=== PATIENT | male | born 1995 | race Caucasian/White ===

== ENCOUNTER 2019-05-30 16:46 | Inpatient (IN) ==
--- NOTE | 2019-05-30 17:10 | PROVIDER DOCUMENTATION ---
HPI-General Adult - General Chief Complaint: GI Bleed Stated Complaint: PASSING BLOOD Time Seen by Provider: 05/30/19 16:55 Source: patient, family Allergies/Adverse Reactions: Patient Allergies Allergy/AdvReac Type Severity Reaction Status Date / Time No Known Allergies Allergy Verified 05/30/19 18:34 Home Medications: Home Medication List Medication Instructions Recorded Confirmed Last Taken Type NK [No Home Medications] 05/30/19 05/30/19 Unknown History - History of Present Illness -Gen Adult Nature of Presenting Problems: This is a 24yo male who presents with CC of bloody diarrhea, nausea, vomiting and weakness for 2-3 days. The patient has PMH of meth use. He does report bright red blood in his stool that he has noted today. He denies any bloody vomit. He denies hx of bloody stool. He does report elevated temp at approximately 100 degrees yesterday. The patient was recently treated at another ER and reports he was told it was his nerves. He was given a Rx by them but has not filled it. Review of Systems - Adult - REVIEW OF SYSTEMS - ADULT Constitutional: reports: fever Eyes: reports: no symptoms reported Ears, Nose, Mouth & Throat: reports: no symptoms reported Cardiovascular: reports: no symptoms reported. denies: chest pain Respiratory: reports: no symptoms reported. denies: shortness of breath Gastrointestinal: reports: abdominal pain, nausea, vomiting Genitourinary: reports: other (dark urine) Musculoskeletal: reports: no symptoms reported Integumentary: reports: rash Neurological: reports: no symptoms reported Psychiatric: reports: anxiety, alcohol/drug dependence Endocrine: reports: no symptoms reported Hematologic/Lymphatic: reports: no symptoms reported Allergic/Immunologic: reports: no symptoms reported Past History - Adult - PAST MEDICAL HISTORY-ADULT Review of Records: reports: Old Records Reviewed (no previous records noted) Major Childhood Illnesses: reports: denies history Cardiovascular: reports: denies history Respiratory: reports: denies history Gastrointestinal: reports: denies history. denies: hepatitis Genitourinary: reports: denies history Musculoskeletal: reports: denies history Neurological: reports: denies history Psychiatric: reports: denies history Endocrine/Immune: reports: denies history - SOCIAL HISTORY Smoking: other (smoker quite 6-7 weeks ago) Substance Use: amphetamines Alcohol Use Frequency: sober (former use) (8 months) Physical Exam-General - PHYSICAL EXAM-ADULT Initial Vital Signs Reviewed: Yes - CONSTITUTIONAL General Appearance: alert, no apparent distress - EYES Eyes: scleral icterus. negative: conjuctival exudate - HEAD, EARS, NOSE, MOUTH & THROAT HENMT: normocephalic/atraumatic, moist mucous membranes, pharynx normal - NECK Neck: normal inspection - RESPIRATORY Respiratory: lungs clear, normal breath sounds. negative: stridor, wheezing - CARDIOVASCULAR Cardiovascular: regular rate, rhythm, no edema - GASTROINTESTINAL (ABDOMEN) Abdominal Exam: non tender, soft - MUSCULOSKELETAL Extremity: non-tender (LE) - SKIN Integumentary: warm/dry, rash (several sites of erythema noted on the upper extremities.) - NEUROLOGIC Neurologic: grossly normal - PSYCHIATRIC Psych/Mental Status: normal mood/affect, normal thought content, normal thought process Progress - PLAN OF CARE/RESULTS Progress/Plan/Lab Results: Vital Signs - 8 hr 05/30/19 16:48 Temperature 98.0 F Pulse Rate 94 H Respiratory Rate 16 Blood Pressure 132/90 O2 Sat by Pulse Oximetry 100 Orders Category Date Time Status CBC WITH DIFF [HEME] Stat Lab 05/30/19 16:56 Uncollected COMPREHENSIVE METABOLIC PANEL [CHEM] Stat Lab 05/30/19 16:56 Uncollected LACTATE, PLASMA [CHEM] Stat Lab 05/30/19 16:56 Uncollected Result Diagrams: 05/30/19 18:35 05/30/19 17:36 - REASSESSMENT Reassessment #1 Status: other (Dicussed with GI team, Dr. Macdonald who recomended admission to hospitalist service, and he will see patient in the morning.) Reassessment #2 Status: other (Discussed case with the hospitalist team who have accepted the patient.) Departure - Departure Date of Disposition Decision: 05/30/19 Time of Disposition Decision: 21:00 DIAGNOSIS: Hepatitis, Nausea Vomiting Qualifiers: Vomiting type: unspecified Vomiting Intractability: non-intractable Nausea presence: with nausea Qualified Code(s): R11.2 - Nausea with vomiting, unspecified Disposition: ADMITTED INPATIENT 09 Certified Medical Emergency: Emergent Condition: Good Referrals and Follow-Ups: None,PCP [Primary Care Provider] - - Critical Care Note This patient required my direct & personal management of CC.: No Attestation - Physician/ JOSE Attestation Patient care was provided by Advanced Practice Provider:: No The physician spent face to face time with patient:: Yes Advanced Practice Provider documentation review:: Supervising physician onsite and consulted in the evaluation and care of this patient. The physician did have a face to face encounter with the patient.
[2019-05-30 18:18] LABS: URINE SOURCE CLEAN CATCH
[2019-05-30 18:21] LABS: BILIRUBIN URINE MODERATE (NEGATIVE); BLOOD URINE NEGATIVE (NEGATIVE); COLOR YELLOW; GLUCOSE URINE >1000 mg/dL (NEGATIVE); KETONE URINE NEGATIVE (NEGATIVE); LEUKOCYTES URINE NEGATIVE (NEGATIVE); NITRITE URINE NEGATIVE (NEGATIVE); PROTEIN URINE TRACE mg/dL (NEGATIVE); SP GRAVITY URINE 1.016; TURBIDITY URINE CLEAR (CLEAR); UROBILINOGEN URINE NORMAL (NORMAL)
[2019-05-30 18:33] LABS: UR EPITHELIAL CELLS <10 /HPF (<10); URINE BACTERIA NEGATIVE /HPF; URINE RBC <10 /HPF (<10); URINE WBC <10 /HPF (<10)
[2019-05-30 18:43] LABS: AGAP 14; ALB/GLOB RATIO 1.1; ALBUMIN 3.4 g/dL (3.5-5.0); ALKALINE PHOSPHATASE 205 U/L (32-122); BUN 7 mg/dL (8-22); CALCIUM 8.6 mg/dL (8.8-10.2); CHLORIDE 94 mmol/L (98-107); COSMO 274; CREATININE 0.7 mg/dL (0.7-1.2); ESTIMATED GFR > 60; GLUCOSE 201 mg/dL (70-104); POTASSIUM 3.9 mmol/L (3.5-5.1); SODIUM 135 mmol/L (136-145); TCO2 27 mmol/L (25-35); TOTAL BILIRUBIN 4.51 mg/dL (0.20-1.00); TOTAL PROTEIN 6.5 g/dL (6.3-8.3)
[2019-05-30 18:45] LABS: URINE CASTS NONE SEEN; URINE CRYSTALS CA OXALATE PRESENT; URINE YEAST NONE SEEN
[2019-05-30 18:46] LABS: BASO# 0.06 X1000 (0.0-0.2); BASO% 1.4 % (0.0-0.8); EOS# 0.02 X1000 (0.0-0.7); EOS% 0.5 % (0.0-10.0); HEMATOCRIT 45.4 % (42.0-52.0); IMM GRAN# 0.02 X1000 (0.0-0.04); IMM GRAN% 0.5 % (0.0-0.5); LYMPH# 1.61 X1000 (1.2-3.4); LYMPH% 37.6 % (20.5-51.1); MCH 28.8 PG (27-31); MCV 87.1 FL (81-99); MONO# 0.46 X1000 (0.11-0.59); MONO% 10.7 % (1.7-9.3); MPV 11.1 FL (7.4-10.4); NEUT# 2.11 X1000 (1.4-6.5); NEUT% 49.3 % (42.2-75.2); PLT 145 X1000 (130-400); RBC 5.21 XMIL (4.7-6.1); RDW 14.7 % (11.5-14.5); WBC 4.28 X1000 (4.8-10.8)
[2019-05-30 19:05] LABS: GOT 872 U/L (10-34); GPT 1673 U/L (10-44)
[2019-05-30] MEDS ORDERED: ZOFRAN IV ONE (19:43)
[2019-05-30 19:54] LABS: ACETAMINOPHEN 4.4 ug/mL (10-30); SALICYLATES < 3.00 mg/dL (3-10)
[2019-05-30 21:36] LABS: UR AMPHETAMINES QUAL PRESUMPTIVE POSITIVE (NONE DETECT); UR BARBITUATES QUAL NONE DETECTED (NONE DETECT); UR BENZODIAZEPIN QUAL NONE DETECTED (NONE DETECT); UR CANNABINOIDS QUAL NONE DETECTED (NONE DETECT); UR COCAINE QUAL NONE DETECTED (NONE DETECT); UR METHADONE QUAL NONE DETECTED (NONE DETECT); UR OPIATES QUAL NONE DETECTED (NONE DETECT); UR OXYCODONE QUAL NONE DETECTED (NONE DETECT); UR PCP QUAL NONE DETECTED (NONE DETECT)
[2019-05-30] MEDS ORDERED: SODIUM CHLORIDE 0.9% INJ ONE (21:57)
[2019-05-30] MEDS ORDERED: PHENERGAN IV ONE (21:57)
[2019-05-30 22:02] LABS: INR 1.06; PROTIME 13.9 Seconds (11.0-16.0)
[2019-05-30 22:03] LABS: PTT 40.3 Seconds (22.3-41.8)
--- NOTE | 2019-05-30 22:18 | EKG Report ---
Test Performed on : 05/30/2019 10:12:43 PM Test Reason : N/V/D, weakness Blood Pressure : / mmHG Vent. Rate : 062 BPM Atrial Rate : 062 BPM P-R Int : 142 ms QRS Dur : 096 ms QT Int : 414 ms P-R-T Axes : 069 063 070 degrees QTc Int : 420 ms Normal sinus rhythm. Normal ECG No previous ECGs available Unconfirmed Result
[2019-05-30 22:27] LABS: HEMOGLOBIN A1C 5.5 % (4.8-6.0)
[2019-05-31 01:00] LABS: AMYLASE 38 U/L (20-200); LIPASE 30 U/L (13-60)
[2019-05-31] MEDS: PROTONIX IV SCH (01:02)
[2019-05-31] MEDS: SODIUM CHLORIDE 0.9% INJ SCH (01:03)
[2019-05-31] MEDS ORDERED: TYLENOL PO PRN (01:26)
[2019-05-31] MEDS ORDERED: ZOFRAN IV PRN (01:26)
[2019-05-31] MEDS ORDERED: SODIUM CHLORIDE 0.9% INJ PRN (01:26)
[2019-05-31] MEDS ORDERED: NS 1,000 ML IV SCH (01:30)
[2019-05-31] MEDS ORDERED: PHENERGAN IV PRN (02:00)
--- NOTE | 2019-05-31 04:36 | HISTORY AND PHYSICAL ---
PRIMARY CARE PROVIDER: Patient does not have a primary care provider. CHIEF COMPLAINT: Rectal bleeding. HISTORY OF PRESENT ILLNESS: Mr. Veronica is a 24-year-old male with no known past medical history except for he does have a history of previous alcohol and nicotine abuse though currently only is abusing IV methamphetamines. The patient states that for approximately a week now that he has been having hematochezia. He has been having bright red blood in the toilet when he has bowel movements. The patient reports that he has had hemorrhoids in the past when he played football though this is different. It is not just a small amount mixed in his stool or on toilet paper. This is a large amount that covers the toilet paper and makes the entire toilet turn red though he denies any diarrhea or loose stools. He states he is having regular bowel movements with soft, brown, formed stools. He is reporting now for the past 2 to 3 days nausea, vomiting, and some weakness though he denies any hematemesis or coffee-ground appearance to his emesis. He denies any abdominal pain other than he did have a few episodes of abdominal cramping when he was having bowel movements. He also reports a subjective fever of 100 degrees yesterday. He denies any recent travel. He denies being around anyone with similar symptoms or anyone who was sick. He also denies any headache, dizziness, or feeling lightheaded. He denies any chest pain, shortness of breath or cough. He denies any dysuria or urinary frequency. He denies any pain, numbness, tingling or swelling in extremities. The patient states that he does not feel good and feels weak all over. He did not report any weakness on one side of his body that is worse than the other. The patient states that he was in the ER a few days ago at another hospital and was treated for anxiety. The patient states that he has recently been having some family issues and had lost a place to stay and had lost contact with his family and had been having increased stress and anxiety related to this though other than this he does not report any other recent illnesses. He denies any previous history of gastrointestinal bleeding or issues. He also denies any [id number] use of NSAIDs. He denies any current alcohol use as well though did report that for approximately 6 years he did drink daily and drank 6 beers per day. The patient denies any previous history of any liver complications as well. Upon evaluation in the ER, he was noted to have transaminitis with a total bilirubin of 4.51, AST 872, ALT 1673, and alkaline phosphatase of 205. He also had elevated lactate at 3. Urinalysis did not show any signs of infection though was positive for glucose, trace protein and moderate bilirubin. Urine drug screen was positive for amphetamines. The patient's salicylate level was less than 3 though his acetaminophen level was 4.4. We did repeat this in 4 hours and it had decreased to 3.3. Upon further questioning the patient about this, he denied any recent Tylenol use though stated a few days ago he did state he did take some Tylenol. He denied taking any other medications that may have Tylenol as a combination medication as well. Given his transaminitis, nausea, vomiting and reported fever, we did go ahead and perform a CT abdomen and pelvis with IV contrast which did show a very mild gallbladder wall thickening versus pericholecystic fluid. Radiologist did note to consider a right upper quadrant ultrasound for further evaluation. There were no gallstones identified. There were no focal liver lesions identified either and there was no biliary duct dilation. At this time, the patient will be admitted to medical floor for further treatment and evaluation. REVIEW OF SYSTEMS: A 14 point review of systems was conducted with the patient and all were negative except for pertinent positives mentioned above in HPI. PAST MEDICAL HISTORY: The patient denies any previous past medical history. PAST SURGICAL HISTORY: The patient denies any previous past surgical history. SOCIAL HISTORY: The patient is a former smoker. He did smoke 1 pack per day for approximately 6 years though quit smoking 6 months ago. The patient also reports that he used to be a daily drinker. He reports for 6 years he drank 6 beers daily though states he has not drank any alcohol in quite some time. He does report a history of illicit drug use and states that he does use IV amphetamines. He does inject IV methamphetamines though he denies any other illicit drug use besides this. The patient did report that he had recently lost his place to live and from what I understand contact with his family and has been under a lot of stress and has had increased anxiety. FAMILY MEDICAL HISTORY: The patient denies any past family medical history in his mother, father, brother or sister. He states they are all in good health. ALLERGIES: Patient has allergies to penicillin though he reports an unknown allergy. He states that he has been told since he was a baby that he has been allergic to penicillin. HOME MEDICATIONS: The patient denies any prescription medication use. DIAGNOSTIC DATA: White blood cell count is 4280, hemoglobin 15, hematocrit 45.4, platelet count is 145,000. PT 13.9, INR 1.06, PTT is 40.3. Sodium 135, potassium 3.9, chloride 94, serum bicarbonate is 27, BUN 7, creatinine 0.7, GFR is greater than 60, glucose 201. Hemoglobin A1c is 5.5. Calcium 8.6, magnesium 1.8, total bilirubin is 4.51, AST 872, ALT 1674, alkaline phosphatase is 205. Ammonia is 51. Amylase 38, lipase 30. Plasma lactate is 3. Salicylate level is less than 3. Acetaminophen level is 4.4 with a repeat 4 hours later of 3.3. Urine drug screen was positive for amphetamines. Urinalysis was positive for trace protein, glucose, moderate bilirubin though was negative for ketones, blood, nitrites, leukocytes, white blood cells, or bacteria. EKG showed normal sinus rhythm at a rate of 62 with a QTc of 420. CT abdomen and pelvis with IV contrast only showed very mild gallbladder wall thickening versus pericholecystic fluid. Radiologist noted to consider right upper quadrant ultrasound for further evaluation. There were no calcified gallstones identified. There was no biliary duct dilation. Also noted that there were no focal liver lesions, but it was noted that there was mild portacaval and periportal adenopathy. Please see radiologist's report for full detailed findings. PHYSICAL EXAMINATION: VITAL SIGNS: Temperature is 98 degrees, heart rate 66, respirations 18, blood pressure is 134/85, oxygen saturation is 100% on room air. GENERAL: Mr. Veronica is a 24-year-old male. He was resting in the ER stretcher. He was in no acute distress. He was awake, alert, and able to answer questions appropriately. HEENT: Head is atraumatic, normocephalic. Pupils are equal, round, reactive to light, were 3 mm bilaterally and brisk. Mild jaundice was noted to bilateral sclerae. Oral mucosa was moist. Oropharynx is clear. NECK: Supple. Trachea midline. CARDIOVASCULAR: Patient has S1-S2 present. No murmurs, gallops, rubs appreciated with a regular rate and rhythm. PULMONARY: Patient has symmetrical chest expansion bilaterally. Lung sounds are clear to auscultation in bilateral full valentin. ABDOMEN: Soft, nontender, nondistended. Bowel sounds are present in all 4 quadrants, were slightly hyperactive. EXTREMITIES: No cyanosis or edema noted. Pulse, motor, and sensory were intact in all extremities. Radial and pedal pulses were 2+ bilaterally. INTEGUMENTARY: The patient's skin is pink, warm, and dry. NEUROLOGICAL: Patient is alert and oriented to person, place, time, and situation. He is able to move all extremities. There were no focal neurological deficits noted. ASSESSMENT AND PLAN: 1. Transaminitis. For further evaluation of this, we have ordered a hepatitis profile. We will repeat a CMP in the morning. We have placed orders for an abdominal ultrasound. We also will continue to rule out possible gallbladder disease as well given that there were reports of some mild gallbladder wall thickening versus pericholecystic fluid on the patient's CT abdomen and pelvis. We have also placed a consult with Dr. Denton with Gastroenterology. We will await his evaluation and further recommendations for management. 2. Nausea, vomiting. Though the patient has not vomited since yesterday, he still is nauseated. He did attempt to eat while in the ER though did become immediately nauseated after he ate. We will implement some gentle intravenous fluids of normal saline. We will implement antiemetics of Zofran and Phenergan to be alternated as needed. He is NPO at this time for abdominal ultrasound in the morning though if his nausea and vomiting have improved we could possibly try to implement a clear liquid diet to see how he tolerates this as long as his abdominal ultrasound does not show any acute findings that would not allow him to have oral intake. 3. Hematochezia. The patient at this time is hemodynamically stable. Hemoglobin and hematocrit are stable. His platelet count and INR are within normal limits as well. We will continue to monitor this closely. We will await Gastroenterology evaluation and further recommendations for management. 4. Intravenous methamphetamine use. 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 Also, the patient has reported a subjective fever. Given this, we did go ahead and collect blood cultures. We will await the results and continue to follow. 5. Deep vein thrombosis prophylaxis will be provided with sequential compression devices. The patient has been placed on the medical floor with telemetry. He will have vital signs every 8 hours. He will be NPO at this time for an abdominal ultrasound in the morning. We will repeat a CBC and CMP in the morning as well. Further orders and recommendations pending hospital course, diagnostic studies, and physician evaluation. Dictated by LUDMILA Shetty for Manfred Heck MD cc: Manfred Heck MD
[2019-05-31 07:45] LABS: BASO# 0.04 X1000 (0.0-0.2); BASO% 0.9 % (0.0-0.8); EOS# 0.05 X1000 (0.0-0.7); EOS% 1.1 % (0.0-10.0); HEMATOCRIT 47.5 % (42.0-52.0); HEMOGLOBIN 15.5 g/dL (14.0-18.0); LYMPH# 2.11 X1000 (1.2-3.4); LYMPH% 46.2 % (20.5-51.1); MCH 28.7 PG (27-31); MCHC 32.6 g/dL (33-37); MCV 87.8 FL (81-99); MONO# 0.55 X1000 (0.11-0.59); MPV 11.7 FL (7.4-10.4); NEUT# 1.82 X1000 (1.4-6.5); NEUT% 39.8 % (42.2-75.2); PLT 167 X1000 (130-400); RBC 5.41 XMIL (4.7-6.1); WBC 4.57 X1000 (4.8-10.8)
[2019-05-31 08:04] LABS: LYMPHS 34 % (21-51); MONO 14 % (1-9); SEGS 40 % (42-75)
[2019-05-31 08:08] LABS: AGAP 10; ALBUMIN 3.1 g/dL (3.5-5.0); ALKALINE PHOSPHATASE 196 U/L (32-122); BUN 6 mg/dL (8-22); CALCIUM 8.8 mg/dL (8.8-10.2); CHLORIDE 99 mmol/L (98-107); COSMO 273; CREATININE 0.9 mg/dL (0.7-1.2); ESTIMATED GFR > 60; GLUCOSE 89 mg/dL (70-104); GOT 611 U/L (10-34); POTASSIUM 4.3 mmol/L (3.5-5.1); SODIUM 138 mmol/L (136-145); TCO2 29 mmol/L (25-35); TOTAL BILIRUBIN 4.26 mg/dL (0.20-1.00); TOTAL PROTEIN 6.3 g/dL (6.3-8.3)
--- NOTE | 2019-05-31 08:12 | Diag Imaging Result Doc PS360 ---
EXAM: CT ABD/PELVIS W/IV CONT ONLY 05/30/2019 HISTORY: N/V,Hematochezia,Transaminitis,Fever TECHNIQUE: This exam was performed using automated exposure control, adjustment of mA or kV according to patient size, and/or use of iterative reconstruction technique. COMMENT: There are no previous studies available for comparison. The appearance of the visualized portion of the chest is unremarkable. There is a fair amount of retained fluid and solid contents within the stomach. There is some fluid in the duodenum and fluid is seen in Morison's pouch around the second portion of the duodenum. The gallbladder is not distended and there are no apparent stones. The liver is unremarkable. The spleen is not enlarged. The adrenal glands are not enlarged. The pancreas is unremarkable in appearance. The kidneys are without evidence of hydronephrosis or mass. There is some gas and fecal debris throughout the colon without evidence of dilatation. The remainder of the small bowel is not distended. The aorta is not distended and there is no evidence of significant adenopathy. Pelvis: The appendix is normal in appearance. There is a small amount of free fluid in the rectovesical pouch. There is a portion of the rectum which is not well distended. The possibility of mucosal thickening in this area cannot be excluded. The urinary bladder is not distended. There are some scattered bone islands in the pelvis. There is no evidence of acute bony abnormality. IMPRESSION: Minimal free fluid in the abdomen and pelvis of uncertain etiology. Slightly distended stomach. Questionable mucosal thickening in the rectum. Electronically signed by Mode Mendoza 05/31/2019 8:10 AM
[2019-05-31] MEDS ORDERED: LASIX IV ONE (08:16)
[2019-05-31 08:31] LABS: GPT 1377 U/L (10-44)
--- NOTE | 2019-05-31 11:23 | Diag Imaging Result Doc PS360 ---
EXAM: US ABDOMEN-COMPLETE 05/31/2019 HISTORY: Transaminitis,R/O Gallbladder Dx TECHNIQUE: Abdominal ultrasound COMMENT: The pancreatic head and body are normal in appearance. The visualized portions of the aorta and inferior vena cava are within normal limits. The liver is slightly hyperechoic which may be due to fatty change. There is antegrade flow in the portal vein. The gallbladder is not distended and there is some thickening of the wall the gallbladder. There are no apparent stones. There is no evidence of biliary dilatation the common bile duct measuring less than 3 mm in diameter. The spleen is slightly enlarged measuring over 13 cm. There are no abnormal fluid collections. The kidneys are without evidence of hydronephrosis or mass. There is no sonographic Chavez sign. IMPRESSION: Questionable hepatic steatosis. Contracted gallbladder. Borderline splenomegaly. Electronically signed by Mode Mendoza 05/31/2019 11:21 AM
--- NOTE | 2019-05-31 16:35 | PROGRESS NOTE ---
DATE: 05/31/2019 SUBJECTIVE: Patient reports not feeling nauseated. Actually he reports feeling hungry. Denies any abdominal pain or fever. OBJECTIVE: Vital Signs: Temperature 98.7 degrees, heart rate 62, respiratory rate 20, blood pressure 123/63, O2 saturation 100% on room air. General examination: This is a 24-year-old male, lying in bed, in no acute distress. Cardiovascular: S1, S2 heard. No murmurs, gallops, or rubs. Regular rate and rhythm. Respiratory: Clear bilaterally to auscultation. No work of breathing or using accessory muscles. Abdomen: Soft. Nontender to palpation. Bowel sounds present. No organomegaly. Extremities: No clubbing, cyanosis, or edema. Peripheral pulses present in both legs. Neurological: Patient is alert and oriented x3. Moves 4 extremities. LABORATORY DATA: White cell count 4.57, hemoglobin is 15.5, hematocrit 47.5, platelets 167,000. INR at presentation 1.06. BMP is normal. Total bilirubin 4.26, AST 611, ALT 1,377, with alkaline phosphatase 196. The abdominal ultrasound done today showed questionable hepatic steatosis, contracted gallbladder, and borderline splenomegaly. The CT scan of the abdomen showed questionable mucosal thickening in the rectum. ASSESSMENT AND PLAN: 1. Acute hepatitis. We do not know the exact reason why this patient developed this condition. Our differential includes viral hepatitis considering that he is a current IV drug abuser; he used IV amphetamine. So we will check a lipid panel and HIV. The abdominal ultrasound revealed a contracted gallbladder. There is also pericholecystic fluid on the patient's CT. We have consulted Dr. Denton from GI and will see what he has to say. 2. Hematochezia. That was reported in the H P but he is no longer having any rectal bleeding. Hemoglobin is stable. We will see what GI has to say. 3. Intravenous amphetamine abuse. Patient strongly counseled to stop abusing drugs. 4. Disposition. We will see what GI has to say today. cc: Linwood oRmeo MD
[2019-06-01] MEDS ORDERED: MELATONIN PO ONE (01:51)
[2019-06-01] MEDS: PROTONIX IV SCH (01:53)
[2019-06-01] MEDS: SODIUM CHLORIDE 0.9% INJ SCH (01:53)
[2019-06-01 07:28] LABS: INR 1.01; PROTIME 13.4 Seconds (11.0-16.0)
[2019-06-01 07:44] LABS: AGAP 10; BUN 6 mg/dL (8-22); CALCIUM 8.6 mg/dL (8.8-10.2); CHLORIDE 97 mmol/L (98-107); COSMO 271; CREATININE 0.9 mg/dL (0.7-1.2); ESTIMATED GFR > 60; GLUCOSE 95 mg/dL (70-104); POTASSIUM 4.1 mmol/L (3.5-5.1); SODIUM 137 mmol/L (136-145); TCO2 30 mmol/L (25-35)
[2019-06-01 07:46] LABS: BASO# 0.06 X1000 (0.0-0.2); BASO% 1.2 % (0.0-0.8); EOS# 0.03 X1000 (0.0-0.7); EOS% 0.6 % (0.0-10.0); HEMATOCRIT 46.8 % (42.0-52.0); LYMPH# 2.33 X1000 (1.2-3.4); LYMPH% 45.2 % (20.5-51.1); MCH 28.1 PG (27-31); MCHC 32.1 g/dL (33-37); MCV 87.6 FL (81-99); MONO% 11.7 % (1.7-9.3); MPV 11.7 FL (7.4-10.4); NEUT# 2.13 X1000 (1.4-6.5); NEUT% 41.3 % (42.2-75.2); PLT 172 X1000 (130-400); RBC 5.34 XMIL (4.7-6.1); RDW 15.2 % (11.5-14.5); WBC 5.15 X1000 (4.8-10.8)
[2019-06-01 09:17] LABS: HIV ANTIBODY SCREEN SEE COMMENTS
[2019-06-01 10:55] LABS: HEPATITIS PROFILE ACUTE SEE COMMENTS
[2019-06-01] MEDS: NS 1,000 ML IV SCH ×2 (11:56→21:45)
--- NOTE | 2019-06-01 14:22 | GASTROENTEROLOGY CONSULTATION ---
DATE: 06/01/2019 REASON FOR CONSULT: Nausea, vomiting, and GI bleed. HISTORY OF PRESENT ILLNESS: Mr. Veronica is a 24-year-old male with a past history of alcohol and tobacco abuse. Currently, he is abusing IV methamphetamines. The patient says that for the last 1 week he has been having blood in his stools and he has described it as red blood on every bowel movement. He has denied any nausea, vomiting, and abdominal pain. When asked about hemorrhoids at first he denied, but said that it was longtime back during his school days. He mentioned that his bowel movements have always been regular, denied any diarrhea or constipation. He did mention having some fever but no chills, shortness of breath or dizziness. The patient has some family issues and he is going through a lot of stress and anxiety. He has denied any GI bleed, nausea, vomiting, or any use of NSAIDs in the past, this is the first time he has been having bleeding. He has given up smoking and drinking alcohol for the last 8 months. An abdomen and pelvis CT was done which showed minimum free fluid in the abdomen and pelvis of uncertain etiology, slightly distended stomach, questionable mucosal thickening in the rectum. Abdominal ultrasound revealed questionable hepatic steatosis, contracted gallbladder, borderline splenomegaly. PAST MEDICAL HISTORY: IVDA. PAST SURGERY HISTORY: He denied any surgeries. ALLERGIES: He is allergic to penicillin. SOCIAL HISTORY: He is single. Given up smoking and alcohol for the past 8 months. He currently injects IV methamphetamine. FAMILY HISTORY: No known GI malignancies. HOME MEDICATIONS: Patient has denied any home medications. REVIEW OF SYSTEMS: As per HPI. Otherwise, 12 point review of system is negative. PHYSICAL EXAMINATION: Vital Signs: 97.2 temperature, pulse 58, respirations 19, blood pressure 144/69, oxygen saturation 100% on room air. The patient's weight is 179 pounds. BMI is 23.7 kg/m2. General: He is alert, oriented x3, and in no acute distress. HEENT: Pale conjunctivae. No icterus. Pale conjunctivae. Mild icterus. Mild jaundice noted. PERRL. Neck: Supple. Lungs: Clear to auscultation in the anterior valentin. Cardiovascular: Regular rate and rhythm. Abdomen: Soft, nontender, nondistended. Active bowel sounds heard in all 4 quadrants. Extremities: No cyanosis, clubbing, or edema. Pedal pulses 2+ present bilaterally. Neurological: Alert, oriented x3. Cranial nerves 2-12 grossly intact. Nonfocal. LABORATORY DATA: WBCs 5.15, RBC 5.34, hemoglobin 15.0, hematocrit 46.8, platelet count is 172,000. Sodium 137, potassium 4.1, chloride 97, carbon dioxide 30, anion gap 10, BUN 6, creatinine 0.9, glucose 95, calcium 8.6, AST 611, ALT 1377, alkaline phosphatase is 196 plus albumin is 3.1. Urine showed trace of protein, moderate bilirubin. Toxicology showed urine methamphetamine screen presumptive positive. His HIV virus was nonreactive. Hepatitis B nonreactive, B core antigen nonreactive, C antibody nonreactive. Hepatitis A viral antibody reactive. Blood culture showed no growth. IMPRESSION AND PLAN: Elevated LFT's Jaundice IV drug use Nausea/Vomiting Positive Hepatitis A IgM-suggesting acute/active infection. GI bleed- resolved now. Normal Hematocrit. PLAN: The patient is currently on a clear liquid diet, we will advance as tolerated. He is receiving Protonix 40 mg daily for his GI bleed. He is on IV fluids normal saline at 100 mL/h. Antiemetic Zofran 4 mg q.4 hours as needed, Phenergan 12.5 mg q.4 hours as needed for his nausea and vomiting. The patient's hemoglobin is 15 and 46.8. He is hemodynamically stable. His liver function tests are elevated. AST is 611, ALT is 1377, alkaline phosphatase is 196. It has slightly trended down. but we will continue to monitor his LFT's daily, follow conservative treatment with IV fluids and rest. Advised patient to avoid hepatotoxic drugs and to stop IV drug use. We will follow the plan of care per PCP. This plan was discussed with Dr. David. Thank you for your consult. Please call us for any further questions or concerns. Dictated by LUDMILA Harding for Inocencio David MD cc: Inocencio David MD Patient seen and examined by myself. I agree with the above plan of care. I have discussed the above with the patient and his family at bedside and all questions were answered. Please call us with any further questions. [facility]
[2019-06-01] MEDS ORDERED: KLONOPIN PO ONE (16:21)
--- NOTE | 2019-06-01 18:48 | PROGRESS NOTE ---
DATE: 06/01/2019 SUBJECTIVE: Patient has no major complaints. OBJECTIVE: Vital Signs: Blood pressure is 127/77, heart rate of 85, respiratory rate of 19, temperature 98.2 degrees, 100% on room air. Cardiovascular: Regular rate and rhythm. Pulmonary: Bilateral breath sounds, diminished at the bases. GI: Soft, nontender, and nondistended. Bowel sounds are positive. LABORATORY DATA: White count 5, hemoglobin and hematocrit 15 and 46, platelets 172,000. Basic was normal. PROBLEM LIST: Acute hepatitis A. His hepatitis A IgM is positive, so I think that is what is going on here. He seems better. GI has been consulted, but his liver enzymes are trending downward. They did recommend initially going home, but then we are going to observe for 1 more day. If stable, anticipate discharge tomorrow. He is on intravenous fluids. cc: Nathan Ibarra MD
[2019-06-02] MEDS: PROTONIX IV SCH (02:10)
[2019-06-02 07:02] LABS: PROTIME 13.3 Seconds (11.0-16.0)
[2019-06-02 07:07] LABS: BASO# 0.03 X1000 (0.0-0.2); BASO% 0.7 % (0.0-0.8); EOS# 0.07 X1000 (0.0-0.7); EOS% 1.7 % (0.0-10.0); HEMATOCRIT 45.8 % (42.0-52.0); HEMOGLOBIN 14.8 g/dL (14.0-18.0); LYMPH% 40.6 % (20.5-51.1); MCH 27.9 PG (27-31); MCHC 32.3 g/dL (33-37); MCV 86.4 FL (81-99); MONO# 0.41 X1000 (0.11-0.59); MONO% 9.8 % (1.7-9.3); MPV 12.1 FL (7.4-10.4); NEUT# 1.98 X1000 (1.4-6.5); NEUT% 47.2 % (42.2-75.2); PLT 159 X1000 (130-400); RDW 15.1 % (11.5-14.5); WBC 4.19 X1000 (4.8-10.8)
[2019-06-02 07:30] LABS: AGAP 7; ALB/GLOB RATIO 0.9; ALBUMIN 2.9 g/dL (3.5-5.0); ALKALINE PHOSPHATASE 226 U/L (32-122); BUN 5 mg/dL (8-22); CALCIUM 8.4 mg/dL (8.8-10.2); CHLORIDE 101 mmol/L (98-107); COSMO 278; CREATININE 0.7 mg/dL (0.7-1.2); ESTIMATED GFR > 60; GLUCOSE 82 mg/dL (70-104); GOT 255 U/L (10-34); GPT 684 U/L (10-44); SODIUM 141 mmol/L (136-145); TCO2 33 mmol/L (25-35); TOTAL BILIRUBIN 4.91 mg/dL (0.20-1.00)
[2019-06-02 07:37] LABS: EOS 2 % (1-10); LYMPHS 38 % (21-51); MONO 10 % (1-9); SEGS 44 % (42-75)
[2019-06-02 07:38] LABS: HYPOCHROM 1+
[2019-06-02] MEDS: NS 1,000 ML IV SCH (09:25)
[2019-06-02 11:40] VITALS: BP 123/55
[2019-06-02] MEDS ORDERED: FLU VACCINE IM ONE (13:20)
--- NOTE | 2019-06-02 19:02 | GASTROENTEROLOGY PROGRESS NOTE ---
DATE: 06/02/2019 SUBJECTIVE: Mr. Ghosh is a 24-year-old, male, resting in bed. Family at the bedside. Denied any nausea, vomiting, or abdominal pain. OBJECTIVE: Vital Signs: Temperature 97.4 degrees, pulse 72, respirations 18, blood pressure 123/55, oxygen saturation 100% on room air. The patient's weight is 179 pounds. BMI 23.7 kg/m2. General: He is alert and oriented x3, and in no acute distress. HEENT: Pale conjunctivae. Mild icterus. Mild jaundice. PERRL. Neck: Supple. Lungs: Clear to auscultation in the anterior valentin. Cardiovascular: Regular rate and rhythm. Abdomen: Soft, nontender, nondistended. Active bowel sounds in all 4 quadrants. Extremities: No cyanosis, clubbing, or edema. Pedal pulses 2+ present bilaterally. Neurologic: Alert and oriented x3. LABORATORY DATA: WBC 4.19, RBC 5.30, hemoglobin 14.8, hematocrit 45.8, platelet count 159,000. Sodium 141, potassium 4.0, chloride 101, carbon dioxide 33, anion gap 7, BUN 5, creatinine is 0.7. Toxicology report showed that he was for presumptive positive on urine for amphetamines. Serologic: Patient's hepatitis panel, hepatitis B and C was nonreactive, hepatitis A reactive.The patient has active hepatitis A. HIV was nonreactive. IMPRESSION: 1. Elevated liver function tests. 2. Jaundice. 3. Intravenous drug use. 4. Nausea and vomiting. 5. Positive hepatitis A IgM suggesting [id number] infection. PLAN: We will continue the patient with conservative treatments clear liquids, IV fluids and rest. Advised to avoid hepatotoxic drugs and to stop IV drug use. The patient is on IV fluids normal saline 100 mL, antiemetic Zofran and Phenergan as needed for nausea and vomiting. His liver function tests have been trending downward. AST 255, ALT 684, alkaline phosphatase is 226. We will continue to monitor his CBC, BMP and follow the plan of care per PCP. This plan was discussed with Dr. Zepeda. Please call us for any further questions or concerns. Dictated by LUDMILA Harding for Han Zepeda MD Physician Attestation I have seen and examined the patient. I have discussed and reviewed the the note by Yesenia KEYS and agree with findings and plan as documented. In brief, Mr. Bernardo Veronica is a 24 year old man with h/o substance abuse who was admitted with acute hepatitis A infection. LFTs improving. No signs of acute liver failure. HAV is self-limited. Discussed with primary team that this would be reported to health department as may be be a reportable disease. Dr. Cisneros will notify. Patient should follow-up in 2 weeks in clinic to recheck LFTs. Will sign off. MTDD
--- NOTE | 2019-06-03 12:24 | DISCHARGE SUMMARY ---
ADMISSION DATE: 05/30/2019 DISCHARGE DATE: 06/02/2019 DISCHARGE DIAGNOSES: 1. Acute hepatitis A. 2. History of methamphetamine intravenously. 3. Rectal bleeding. 4. Intractable nausea and vomiting, resolved. CONSULTATIONS: Dr. Inocencio David from GI. PROCEDURES: 1. Abdomen and pelvis CT showed minimal free fluid in the abdomen and pelvis of uncertain etiology. 2. Abdominal ultrasound showed questionable hepatic steatosis with contracted gallbladder and borderline splenomegaly. HOSPITAL COURSE: This is a 24-year-old male with past medical history of IV drug abuse, who presented to the emergency department with some hematochezia and intractable nausea and vomiting. ER evaluation here now indicates that he had acute hepatitis. With history of IV drug abuse, we have checked hepatitis panel, and also we have checked an ultrasound and laboratory tests. Liver function, including ALT and AST started getting better. Hepatitis panel was negative for hepatitis B and C, but confirmed hepatitis A. Clinically, the patient was eating since day #1. The ALT and AST started getting better, as well as alkaline phosphatase. Considering his clinical situation, the patient is okay from GI standpoint to be discharged, and he is going to be seen by a GI doctor in the office in a couple of weeks. The patient is being discharged in stable condition. DISCHARGE PHYSICAL EXAMINATION: Vital Signs: Temperature 97.4 degrees, heart rate 72, respiratory rate 18, blood pressure 133/55, O2 saturation 100% on room air. General: This is a 24-year-old male, lying in bed in no acute distress. Cardiovascular: S1, S2 heard. No murmurs, gallops, or rubs. Regular rate and rhythm. Respiratory: Clear bilaterally to auscultation. No work of breathing or using accessory muscles. Abdomen: Soft, nontender to palpation. Bowel sounds present. No organomegaly. Extremities: No clubbing, cyanosis, or edema. Peripheral pulses present in both legs. Neurological: The patient is alert and oriented x3. Moves all 4 extremities. DISCHARGE DISPOSITION: Home to self-care. DISCHARGE MEDICATIONS: 1. Zofran 4 mg every 4 hours p.r.n. nausea. 2. Omeprazole 20 mg 1 tablet p.o. daily for 2 weeks. FOLLOWUP: Follow up with GI, Dr. David, in a couple of weeks. cc: Linwood Romeo MD
== END 2019-06-02 13:24 | disposition home or self-care (01) | DRG 442 ==
LOC: ED 16:46 → 3N 22:14 → SUATTDRO 22:14
PROVIDERS: ATTEND Internal Medicine